=== PATIENT | female | born 1955 | race Caucasian/White ===

== ENCOUNTER 2025-02-26 13:57 | Emergency (ER) | payer MEDICARE, OTHER ==
--- NOTE | 2025-02-26 14:11 | ERPHSYRPT ---
- History of Present Illness Time Seen by Provider: 02/26/25 14:11 Source: patient, family Exam Limitations: no limitations Physician History: This is a 69-year-old white female patient of Dr. Moe Zuniga who presents to the emergency department with abnormal lab diagnosis. The patient has no anemia of unknown cause or etiology. A month ago, patient had a hemoglobin of 7.2. I reviewed those prior labs. Yesterday she had repeat labs performed her hemoglobin was 6.7. Patient states that without exerting herself she does not feel the tired or fatigued. However she has been moving her mother's home and has been tired because of moving and lifting and going back and forth in several directions each day to help complete the move. She denies chest pain. She denies shortness of breath. She denies dizziness. She notes no bright red blood or black tarry stools or bleeding out of any orifice. She is not on any anticoagulation therapy and she has no liver disease. Patient called her brain wave technician office, Dr. Marr but there was no answer. She knows that the office closes early on Fridays. Patient has a history of hypothyroidism and history of hypertension. Patient recently underwent a bone marrow biopsy but does not know of the results of that test. Patient's primary care provider sent her to the emergency department. Timing/Duration: today Severity: mild Associated Symptoms: denies symptoms Allergies/Adverse Reactions: No Known Drug Allergies Allergy (Verified 02/26/25 14:17) Home Medications: Levothyroxine Sodium 100 Mcg [Synthroid 100 Mcg] 100 mcg PO DAILY 05/02/24 [History] Losartan Potassium 50 mg PO DAILY 05/02/24 [History] Metoprolol Succinate 25 mg PO DAILY 05/02/24 [History] hydroCHLOROthiazide [Hydrochlorothiazide] 25 mg PO DAILY 05/02/24 [History] Pyridoxine HCl (Vitamin B6) [Vitamin B-6] 100 mg PO DAILY 02/26/25 [History] Travel Risk - International Travel Have you traveled outside of the country in past 3 weeks: No - Emerging Infectious Disease Are you exhibiting symptoms associated with any current EIDs: No - Review of Systems Constitutional: No Symptoms Eyes: No Symptoms Ears, Nose, & Throat: No Symptoms Respiratory: No Symptoms Cardiac: No Symptoms Abdominal/Gastrointestinal: No Symptoms Genitourinary Symptoms: No Symptoms Musculoskeletal: No Symptoms Skin: No Symptoms Neurological: No Symptoms Psychological: No Symptoms Endocrine: No Symptoms Hematologic/Lymphatic: No Symptoms Immunological/Allergic: No Symptoms All Other Systems: Reviewed and Negative - Past Medical History Pertinent Past Medical History: Yes Cardiac History: High Cholesterol, Hypertension Endocrine Medical History: Hypothyroidism Other Medical History: anemia - Past Surgical History Past Surgical History: Yes Gastrointestinal: Cholecystectomy - Social History Drug Use: none - Nursing Vital Signs Nursing Vital Signs: Initial Vital Signs Pulse Rate 81 02/26/25 14:13 Respiratory Rate 29 H 02/26/25 14:13 Blood Pressure 122/64 02/26/25 14:13 O2 Sat by Pulse Oximetry 96 02/26/25 14:13 Pain Scale Pain Intensity 0 - Physical Exam General Appearance: no apparent distress, alert, thin Eye Exam: PERRL/EOMI, eyes nml inspection Ears, Nose, Throat Exam: normal ENT inspection, moist mucous membranes Neck Exam: normal inspection, non-tender, supple, full range of motion Respiratory Exam: normal breath sounds, lungs clear, airway intact, No chest tenderness, No respiratory distress Cardiovascular Exam: regular rate/rhythm, normal heart sounds, normal peripheral pulses Gastrointestinal/Abdomen Exam: soft, normal bowel sounds, No tenderness Pelvic Exam: not done Rectal Exam: not done Back Exam: normal inspection, normal range of motion, No CVA tenderness, No vertebral tenderness Extremity Exam: normal inspection, normal range of motion, pelvis stable Neurologic Exam: alert, oriented x 3, cooperative, operations label clerk II-XII nml as tested, normal mood/affect, nml cerebellar function, nml station & gait, sensation nml Skin Exam: normal color, warm, dry Lymphatic Exam: No adenopathy SpO2 Interpretation: normal O2 Delivery: Room Air - Course Nursing assessment & vital signs reviewed: Yes Ordered Tests: Active Orders 24 hr Category Date Time Status CBC W DIFF Stat Lab 02/26/25 14:36 Completed CMP Stat Lab 02/26/25 14:36 Completed PROTIME WITH INR Stat Lab 02/26/25 14:36 Completed Medication Summary Discontinued Medications Generic Name Dose Route Start Last Admin Trade Name Freq PRN Reason Stop Dose Admin Potassium Chloride 10 meq 02/26/25 15:47 Potassium Chloride Tab 10 Meq Tab PO 02/26/25 15:48 STAT ONE Lab/Rad Data: Laboratory Result Diagrams 02/26/25 14:36 02/26/25 14:36 Laboratory Results 02/26/25 02/26/25 02/26/25 Range/Units 14:36 14:36 14:36 WBC (3.98-10.04) x10^3/uL RBC (3.93-5.22) x10^6/uL Hgb (11.2-15.7) g/dL Hct (34.1-44.9) % MCV (79.4-94.8) fL MCH (25.6-32.2) pg MCHC (32.2-35.5) g/dL RDW (11.7-14.4) % Plt Count (182-369) x10^3/uL Gran % (34.0-71.1) % Immature Gran % (Auto) (0.001-0.429) % Nucleat RBC Rel Count (0.00-0.2) % Eos # (Auto) (0.04-0.36) x10^3/uL Immature Gran # (Auto) (0.001-0.031) x10^3u/L Absolute Lymphs (auto) (1.18-3.74) x10^3/uL Absolute Monos (auto) (0.24-0.86) x10^3/uL Absolute Nucleated RBC (0.00-0.012) x10^3u/L Lymphocytes % (19.3-51.7) % Monocytes % (4.7-12.5) % Eosinophils % (0.7-5.8) % Basophils % (0.1-1.2) % Absolute Granulocytes (1.56-6.13) x10^3/uL Basophils # (0.01-0.08) x10^3/uL PT 11.0 (9.4-12.5) SECONDS INR 1.01 (0.8-3.0) Sodium 138 (135-145) mmol/L Potassium 3.3 L (3.5-5.1) mmol/L Chloride 103 (98-107) mmol/L Carbon Dioxide 26 (22-30) mmol/L Anion Gap 12.6 (5-15) MEQ/L BUN 11 (7-17) mg/dL Creatinine 0.64 (0.52-1.04) mg/dL Estimated GFR 95.6 ML/MIN Glucose 100 (74-106) mg/dL Calcium 8.9 (8.4-10.2) mg/dL Total Bilirubin 0.90 (0.2-1.3) mg/dL AST 17 (14-36) U/L ALT 11 (0-35) U/L Alkaline Phosphatase 69 (38-126) U/L Serum Total Protein 7.1 (6.3-8.2) g/dL Albumin 4.2 (3.5-5.0) g/dL Slides for Path Review ABO Group O Rh Factor NEGATIVE Antibody Screen NEGATIVE (NEGATIVE) Crossmatch COMPATIBLE (COMPATIBLE) 02/26/25 Range/Units 14:36 WBC 4.5 (3.98-10.04) x10^3/uL RBC 2.82 L (3.93-5.22) x10^6/uL Hgb 6.8 L* (11.2-15.7) g/dL Hct 21.3 L (34.1-44.9) % MCV 75.5 L (79.4-94.8) fL MCH 24.1 L (25.6-32.2) pg MCHC 31.9 L (32.2-35.5) g/dL RDW 27.8 H (11.7-14.4) % Plt Count 254 (182-369) x10^3/uL Gran % 63.6 (34.0-71.1) % Immature Gran % (Auto) 1.6 H (0.001-0.429) % Nucleat RBC Rel Count 0.0 (0.00-0.2) % Eos # (Auto) 0.01 L (0.04-0.36) x10^3/uL Immature Gran # (Auto) 0.07 H (0.001-0.031) x10^3u/L Absolute Lymphs (auto) 0.94 L (1.18-3.74) x10^3/uL Absolute Monos (auto) 0.57 (0.24-0.86) x10^3/uL Absolute Nucleated RBC 0.00 (0.00-0.012) x10^3u/L Lymphocytes % 21.0 (19.3-51.7) % Monocytes % 12.7 H (4.7-12.5) % Eosinophils % 0.2 L (0.7-5.8) % Basophils % 0.9 (0.1-1.2) % Absolute Granulocytes 2.85 (1.56-6.13) x10^3/uL Basophils # 0.04 (0.01-0.08) x10^3/uL PT (9.4-12.5) SECONDS INR (0.8-3.0) Sodium (135-145) mmol/L Potassium (3.5-5.1) mmol/L Chloride (98-107) mmol/L Carbon Dioxide (22-30) mmol/L Anion Gap (5-15) MEQ/L BUN (7-17) mg/dL Creatinine (0.52-1.04) mg/dL Estimated GFR ML/MIN Glucose (74-106) mg/dL Calcium (8.4-10.2) mg/dL Total Bilirubin (0.2-1.3) mg/dL AST (14-36) U/L ALT (0-35) U/L Alkaline Phosphatase (38-126) U/L Serum Total Protein (6.3-8.2) g/dL Albumin (3.5-5.0) g/dL Slides for Path Review YES ABO Group Rh Factor Antibody Screen (NEGATIVE) Crossmatch (COMPATIBLE) - Progress Progress: unchanged Progress Note: 02/26/25 15:10 My medical decision making and the assignment of moderate complexity to this patient's medical issue today is based on review of the patient's past medical history, review the patient's medication list, reviewed patient drug allergy list, history present illness and physical findings on examination. The workup in this patient includes CBC, CMP, PT/INR as well as type and cross for 1 unit of packed red blood cells. Differential diagnosis includes but is not limited to anemia, coagulopathy, liver disease, hematologic disorder. The patient is hemodynamically stable. She does not have chest pain and she does not have shortness of breath. She notes no bleeding actively from any orifice. She has had no black stool, coffee-ground emesis or hematuria that she is aware of. Together, the patient and I have decided that we will repeat the CBC, perform a CMP and a PT/INR and provide her with 1 unit of packed red blood cell transfusion. If she continues to be hemodynamically stable at the the time of PRBC transfusion completion, we will discharge her to home with instructions to follow-up with her brain wave technician on 03/01/2025. 02/26/25 15:53 I interpreted the patient's laboratory data results. The hemoglobin is 6.8 today. Her potassium is mildly low at 3.3. We will provide her with 10 mEq of potassium orally. The remainder of her laboratory data results do not appear to be acute or emergent. Counseled pt/family regarding: lab results, diagnosis, need for follow-up Medical Desision Making - Diagnostic Testing Diagnostic test were ordered, analyzed, and reviewed by me: Yes - Risk of complications Low Risk: Low risk of morbidity from additional dx testing or treatment - Departure Departure Disposition: Home Clinical Impression: Symptomatic anemia Condition: Stable Critical Care Time: Yes Critical Care Time(excluding separately billable procedures): Critical 30-74 mins (45 minutes) Referrals: ELICIA ZUNIGA [Primary Care Provider, INTERNAL [facility]IC[facility]] - Follow up/PCP as directed Additional Instructions: Plenty fluids. Take your medications as prescribed. Call your brain wave technician on 03/01/2025, and make them aware of the events that occurred 02/26/2025. Also, let them know that you had your blood drawn on the morning of 03/01/2025.
[2025-02-26 14:41] LABS: Absolute Neutrophil Ct (ANC) 2.85 x10^3/uL (1.56-6.13); BASOPHIL % 0.9 % (0.1-1.2); Basophil (Absolute #) 0.04 x10^3/uL (0.01-0.08); Eosinophil % 0.2 % (0.7-5.8); Eosinophil (Absolute #) 0.01 x10^3/uL (0.04-0.36); Hematocrit 21.3 % (34.1-44.9); IMMATURE GRAN # 0.07 x10^3u/L (0.001-0.031); IMMATURE GRAN % 1.6 % (0.001-0.429); Lymphocyte (Absolute #) 0.94 x10^3/uL (1.18-3.74); Mean Cell Volume 75.5 fL (79.4-94.8); Mean Corpuscular Hemoglobin 24.1 pg (25.6-32.2); Mean Corpuscular Hgb Concent. 31.9 g/dL (32.2-35.5); Monocyte (Absolute #) 0.57 x10^3/uL (0.24-0.86); Monocytes % 12.7 % (4.7-12.5); Neutrophil % 63.6 % (34.0-71.1); Platelet Count 254 x10^3/uL (182-369); Red Blood Count 2.82 x10^6/uL (3.93-5.22); Red Cell Distribution Width 27.8 % (11.7-14.4); White Blood Count 4.5 x10^3/uL (3.98-10.04)
[2025-02-26 14:44] LABS: Hemoglobin 6.8 g/dL (11.2-15.7)
[2025-02-26 14:51] LABS: ALBUMIN 4.2 g/dL (3.5-5.0); ANION GAP 12.6 MEQ/L (5-15); BILIRUBIN,TOTAL 0.9 mg/dL (0.2-1.3); Calcium 8.9 mg/dL (8.4-10.2); Creatinine 1 0.64 mg/dL (0.52-1.04); EST GLOMERULAR FILTRATION RATE 95.6 ML/MIN; INR 1.01 (0.8-3.0); Potassium 3.3 mmol/L (3.5-5.1); Total Protein 7.1 g/dL (6.3-8.2)
[2025-02-26 15:11] LABS: Slide Review 1 YES
[2025-02-26 15:40] LABS: ABO TYPING O; Antibody Screen NEGATIVE (NEGATIVE); RH TYPING NEGATIVE
[2025-02-26 15:44] LABS: CROSS MATCH (PRBC) COMPATIBLE (COMPATIBLE)
[2025-02-26] MEDS ORDERED: Klor Con ONE (15:56)
[2025-02-26] MEDS: Klor Con PO ONE (15:56)
[2025-02-26] MEDS ORDERED: Sodium Chloride 0.9% 1000 ML 1,000 ML ONE (15:56)
[2025-02-26 18:05] VITALS: BP 114/61; PULSE 72; RESP 18; O2SAT 98
== END 2025-02-26 18:08 | disposition home or self-care (01) ==
LOC: ED 13:57
DX: D64.9 Anemia, unspecified (principal); R53.83 Other fatigue; E78.5 Hyperlipidemia, unspecified; I10 Essential (primary) hypertension; Z79.899 Other long term (current) drug therapy
CPT/HCPCS: 36415; 36430; 80053; 85025; 85610; 86850; 86900; 86901; 86922; 99285; P9016; 99283; 99291; A9270-GY

== ENCOUNTER 2025-08-01 11:19 | Emergency (ER) | payer MEDICARE, OTHER ==
[2025-08-01 11:44] VITALS: TEMP 97.4
--- NOTE | 2025-08-01 12:42 | ERPHSYRPT ---
- History of Present Illness Time Seen by Provider: 08/01/25 12:35 Source: patient Exam Limitations: no limitations Patient Subjective Stated Complaint: Pt. states, "I feel weak and short of breath when I try to do anything at all. I just have no energy. I think my blood counts are low. I had a transfusion 6 weeks ago." Triage Nursing Assessment: Pt. ambulates to room with unsteady gait, A&O x 3, Resp. even unlabored, 1-2+ p. edema in BLE, Physician History: Patient is a 69-year-old female history of hypertension, hypothyroidism current smoker, MDS, symptomatic anemia presents to our ED for evaluation of fatigue/generalized weakness and shortness of breath. Patient believes that she is anemic. Patient has had anemia in the past. Patient had a blood transfusion approximately 6 weeks ago for the same thing. Patient denies pain. No chest pain. No nausea vomiting or diaphoresis. No abdominal pain. Patient otherwise feels well. She voices no other complaints or concerns at this time. Portions of this note were created with voice recognition technology. There may be grammatical, spelling, punctuation or sound alike errors Timing/Duration: today Activities at Onset: activity Severity of Dyspnea-Max: moderate Severity of Dyspnea-Current: mild Possible Cause: occasional episodes Modifying Factors: Improves With: activity Associated Symptoms: denies symptoms Allergies/Adverse Reactions: No Known Drug Allergies Allergy (Verified 07/12/25 13:20) Home Medications: Levothyroxine Sodium 100 Mcg [Synthroid 100 Mcg] 112 mcg PO DAILY 05/02/24 [History] Losartan Potassium 50 mg PO DAILY 05/02/24 [History] Metoprolol Succinate 25 mg PO DAILY 05/02/24 [History] hydroCHLOROthiazide [Hydrochlorothiazide] 25 mg PO DAILY 05/02/24 [History] Pyridoxine HCl (Vitamin B6) [Vitamin B-6] 100 mg PO DAILY 02/26/25 [History] Hx Tetanus, Diphtheria Vaccination/Date Given: Yes Hx Influenza Vaccination/Date Given: No Hx Pneumococcal Vaccination/Date Given: No Immunizations Up to Date: No Travel Risk - International Travel Have you traveled outside of the country in past 3 weeks: No - Emerging Infectious Disease Are you exhibiting symptoms associated with any current EIDs: No Symptoms: Diarrhea - Review of Systems All Other Systems: Reviewed and Negative - Past Medical History Pertinent Past Medical History: Yes Neurological History: No Pertinent History ENT History: No Pertinent History Cardiac History: Hypertension Respiratory History: No Pertinent History Endocrine Medical History: Hypothyroidism Musculoskeletal History: No Pertinent History GI Medical History: No Pertinent History History: No Pertinent History Psycho-Social History: No Pertinent History Female Reproductive Disorders: No Pertinent History Other Medical History: anemia. current smoker. myelodysplastic syndrome with multilineage dysplasia - Past Surgical History Past Surgical History: Yes Neuro Surgical History: No Pertinent History Cardiac: No Pertinent History Respiratory: No Pertinent History Gastrointestinal: Cholecystectomy Genitourinary: No Pertinent History Musculoskeletal: No Pertinent History Female Surgical History: No Pertinent History Other Surgical History: colonoscopy on May 13. bone marrow extraction january 13, 2025 - Social History Smoking Status: Current every day smoker Exposure to second hand smoke: No Drug Use: none - Social Determinants of Health Will the patient participate in the screening: Declined to provide - Nursing Vital Signs Nursing Vital Signs: Initial Vital Signs Temperature 97.4 F 08/01/25 11:19 Pulse Rate 90 08/01/25 11:19 Respiratory Rate 18 08/01/25 11:19 Blood Pressure 128/60 08/01/25 11:19 O2 Sat by Pulse Oximetry 100 08/01/25 11:19 Pain Scale Pain Intensity 3 - Physical Exam General Appearance: no apparent distress, alert Eye Exam: PERRL/EOMI Neck Exam: normal inspection, supple Respiratory Exam: normal breath sounds, lungs clear, airway intact, No respiratory distress Cardiovascular/Chest Exam: normal heart sounds, regular rate/rhythm Abdominal/Gastrointestinal Exam: soft, other (Abdominal fullness. 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, sensation nml, No motor deficits Skin Exam: normal color, warm, No dry Lymphatic Exam: No adenopathy SpO2 Interpretation: normal SpO2: 100 O2 Delivery: Room Air - Course Nursing assessment & vital signs reviewed: Yes Rhythm Strip: Sinus Tachycardia - Radiology Exams Chest X-ray Interpretation: Teleradiologist Report (Right lower lobe infiltrate) - CT Exams Abdomen/Pelvis CT Interpretation: Tele-radiologist Report (Hepatosplenomegaly, portal hypertension, ascites, anasarca, mild bilateral pleural effusion) Ordered Tests: Active Orders 24 hr Category Date Time Status Punchboard Stuffer STAT Care 08/01/25 12:43 Completed IV Insertion STAT Care 08/01/25 12:42 Completed Pulse Oximetry (ED) STAT Care 08/01/25 12:42 Completed Telemetry q4h Care 08/01/25 13:39 Completed ABDOMEN AND PELVIS W/0 CONTRAS [CT] Stat Exams 08/01/25 21:53 Completed CHEST 1 VIEW (PORTABLE) Stat Exams 08/01/25 19:28 Completed BLOOD CULTURE Stat Lab 08/01/25 14:08 Received CBC W DIFF Stat Lab 08/01/25 12:52 Results CMP Stat Lab 08/01/25 12:52 Completed Lactic Acid Stat Lab 08/01/25 14:32 Completed Manual Differential NC Stat Lab 08/01/25 12:52 Results Pathologist Review Stat Lab 08/01/25 12:52 Results TROPONIN Q4H Lab 08/01/25 12:52 Completed UA W/RFX UR CULTURE Stat Lab 08/01/25 12:42 Completed Medication Summary Discontinued Medications Generic Name Dose Route Start Last Admin Trade Name Freq PRN Reason Stop Dose Admin Al Hydrox/Mg Hydrox/Simethicone Confirm 08/01/25 20:26 Mag Hydrox/Al Hydrox/Simeth 30 Ml Udcup Administered 08/01/25 20:27 Dose 30 ml .ROUTE .STK-MED ONE Azithromycin Confirm 08/01/25 21:36 Azithromycin Inj Administered 08/01/25 21:37 Dose 500 mg IV .STK-MED ONE Sodium Chloride 1,000 mls @ 100 mls/hr 08/01/25 12:45 08/01/25 22:54 Sodium Chloride 0.9% 1000 Ml IV 08/31/25 12:44 0 mls/hr .Q10H HO Infusion Magnesium Sulfate/Dextrose 100 mls @ 100 mls/hr 08/01/25 13:45 08/01/25 16:46 Magnesium 1 Gm / 100 Ml D5w IV 08/01/25 15:44 Infused Q1H HO Infusion Potassium Chloride 20 meq in 100 mls @ 50 mls/hr 08/01/25 13:45 08/01/25 19:48 Potassium Chloride 20 Meq In Water 100ml IV 08/01/25 17:44 Infused Q2H HO Infusion Ceftriaxone Sodium 2 gm in 100 mls @ 200 mls/hr 08/01/25 21:22 08/01/25 22:53 Rocephin 2 Gm/100 Ml Nacl IV 08/01/25 21:51 Not Given STAT ONE Azithromycin 500 mg/ Sodium 250 mls @ 250 mls/hr 08/01/25 21:22 08/01/25 22:42 Chloride IV 08/01/25 22:21 Infused STAT STA Infusion Sodium Chloride Confirm 08/01/25 21:36 Sodium Chloride 0.9% 250 Ml Administered 08/01/25 21:37 Dose 250 mls @ ud IV .STK-MED ONE Sodium Chloride Confirm 08/01/25 13:06 Sodium Chloride 0.9% 1000 Ml Administered 08/01/25 13:07 Dose 1,000 mls @ ud .ROUTE .STK-MED ONE Sodium Chloride Confirm 08/01/25 15:40 Sodium Chloride 0.9% 1000 Ml Administered 08/01/25 15:41 Dose 1,000 mls @ ud .ROUTE .STK-MED ONE Magnesium Sulfate/Dextrose Confirm 08/01/25 14:20 Magnesium 1 Gm / 100 Ml D5w Administered 08/01/25 14:21 Dose 100 mls @ ud IV .STK-MED ONE Magnesium Sulfate/Dextrose Confirm 08/01/25 15:06 Magnesium 1 Gm / 100 Ml D5w Administered 08/01/25 15:07 Dose 100 mls @ ud IV .STK-MED ONE Potassium Chloride Confirm 08/01/25 14:00 Potassium Chloride 20 Meq In Water 100ml Administered 08/01/25 14:01 Dose 100 mls @ ud IV .STK-MED ONE Potassium Chloride Confirm 08/01/25 17:45 Potassium Chloride 20 Meq In Water 100ml Administered 08/01/25 17:46 Dose 100 mls @ ud IV .STK-MED ONE Lidocaine HCl Confirm 08/01/25 20:26 Lidocaine Hcl 2% Viscous 15 Ml Udcup Administered 08/01/25 20:27 Dose 15 ml .ROUTE .STK-MED ONE Magnesium Hydroxide 45 ml 08/01/25 20:11 08/01/25 20:27 Mag Hydrx/Alum Hyd/Simeth/Lido 45 Ml Bottle PO 08/01/25 20:12 45 ml STAT ONE Administration Lab/Rad Data: Laboratory Result Diagrams 08/01/25 12:52 08/01/25 12:52 Laboratory Results 08/01/25 08/01/25 08/01/25 Range/Units 14:32 14:10 12:52 WBC (3.98-10.04) x10^3/uL RBC (3.93-5.22) x10^6/uL Hgb (11.2-15.7) g/dL Hct (34.1-44.9) % MCV (79.4-94.8) fL MCH (25.6-32.2) pg MCHC (32.2-35.5) g/dL RDW (11.7-14.4) % Plt Count (182-369) x10^3/uL Segmented Neutrophils (34.0-71.1) % Band Neutrophils (0.0-2.0) % Lymphocytes (Manual) (19.3-51.7) % Monocytes (Manual) (4.7-12.5) % Metamyelocytes % Myelocytes % Nucleated RBCs % Hypochromia Platelet Estimate (NORMAL) RBC Morphology Polychromasia Basophilic Stippling Anisocytosis Microcytosis Macrocytosis Smear Path Review Sodium (135-145) mmol/L Potassium (3.5-5.1) mmol/L Chloride (98-107) mmol/L Carbon Dioxide (22-30) mmol/L Anion Gap (5-15) MEQ/L BUN (7-17) mg/dL Creatinine (0.52-1.04) mg/dL Estimated GFR ML/MIN Glucose (74-106) mg/dL Lactic Acid 2.0 (0.4-2.0) Calcium (8.4-10.2) mg/dL Total Bilirubin (0.2-1.3) mg/dL AST (14-36) U/L ALT (0-35) U/L Alkaline Phosphatase (38-126) U/L Troponin I (0.000-0.033) ng/mL Serum Total Protein (6.3-8.2) g/dL Albumin (3.5-5.0) g/dL Urine Color (Yellow) Urine Appearance (Clear) Urine pH (4.6-8.0) Ur Specific Warrior (1.005-1.030) Urine Protein (Negative) Urine Glucose (UA) (Negative) mg/dL Urine Ketones (Negative) Urine Blood (Negative) Urine Nitrite (Negative) Urine Bilirubin (Negative) Urine Urobilinogen (0.2) mg/dL Ur Leukocyte Esterase (Negative) U Hyaline Cast (Auto) (0-2) /LPF Urine Microscopic RBC (0-5) /HPF Urine Microscopic WBC (0-5) /HPF Ur Epithelial Cells (None Seen) /HPF Urine Bacteria (None Seen) /HPF Urine Culture Reflexed (NO) Influenza Type A Ag NEGATIVE (NEGATIVE) Influenza Type B Ag NEGATIVE (NEGATIVE) RSV (PCR) NEGATIVE (NEGATIVE) SARS-CoV-2 (PCR) NEGATIVE (NEGATIVE) ABO Group Rh Factor Antibody Screen (NEGATIVE) Crossmatch COMPATIBLE (COMPATIBLE) 08/01/25 08/01/25 08/01/25 Range/Units 12:52 12:52 12:52 WBC (3.98-10.04) x10^3/uL RBC (3.93-5.22) x10^6/uL Hgb (11.2-15.7) g/dL Hct (34.1-44.9) % MCV (79.4-94.8) fL MCH (25.6-32.2) pg MCHC (32.2-35.5) g/dL RDW (11.7-14.4) % Plt Count (182-369) x10^3/uL Segmented Neutrophils (34.0-71.1) % Band Neutrophils (0.0-2.0) % Lymphocytes (Manual) (19.3-51.7) % Monocytes (Manual) (4.7-12.5) % Metamyelocytes % Myelocytes % Nucleated RBCs % Hypochromia Platelet Estimate (NORMAL) RBC Morphology Polychromasia Basophilic Stippling Anisocytosis Microcytosis Macrocytosis Smear Path Review Sodium (135-145) mmol/L Potassium (3.5-5.1) mmol/L Chloride (98-107) mmol/L Carbon Dioxide (22-30) mmol/L Anion Gap (5-15) MEQ/L BUN (7-17) mg/dL Creatinine (0.52-1.04) mg/dL Estimated GFR ML/MIN Glucose (74-106) mg/dL Lactic Acid (0.4-2.0) Calcium (8.4-10.2) mg/dL Total Bilirubin (0.2-1.3) mg/dL AST (14-36) U/L ALT (0-35) U/L Alkaline Phosphatase (38-126) U/L Troponin I < 0.012 (0.000-0.033) ng/mL Serum Total Protein (6.3-8.2) g/dL Albumin (3.5-5.0) g/dL Urine Color (Yellow) Urine Appearance (Clear) Urine pH (4.6-8.0) Ur Specific Warrior (1.005-1.030) Urine Protein (Negative) Urine Glucose (UA) (Negative) mg/dL Urine Ketones (Negative) Urine Blood (Negative) Urine Nitrite (Negative) Urine Bilirubin (Negative) Urine Urobilinogen (0.2) mg/dL Ur Leukocyte Esterase (Negative) U Hyaline Cast (Auto) (0-2) /LPF Urine Microscopic RBC (0-5) /HPF Urine Microscopic WBC (0-5) /HPF Ur Epithelial Cells (None Seen) /HPF Urine Bacteria (None Seen) /HPF Urine Culture Reflexed (NO) Influenza Type A Ag (NEGATIVE) Influenza Type B Ag (NEGATIVE) RSV (PCR) (NEGATIVE) SARS-CoV-2 (PCR) (NEGATIVE) ABO Group O Rh Factor NEGATIVE Antibody Screen NEGATIVE (NEGATIVE) Crossmatch COMPATIBLE (COMPATIBLE) 08/01/25 08/01/25 08/01/25 Range/Units 12:52 12:52 12:42 WBC 32.7 H* (3.98-10.04) x10^3/uL RBC 2.54 L (3.93-5.22) x10^6/uL Hgb 6.9 L* (11.2-15.7) g/dL Hct 24.6 L (34.1-44.9) % MCV 96.9 H (79.4-94.8) fL MCH 27.2 (25.6-32.2) pg MCHC 28.0 L (32.2-35.5) g/dL RDW 24.8 H (11.7-14.4) % Plt Count 88 L (182-369) x10^3/uL Segmented Neutrophils 55 (34.0-71.1) % Band Neutrophils 13 H (0.0-2.0) % Lymphocytes (Manual) 7 L (19.3-51.7) % Monocytes (Manual) 20 H (4.7-12.5) % Metamyelocytes 3 % Myelocytes 2 % Nucleated RBCs 8 % Hypochromia 1+ Platelet Estimate DECREASED (NORMAL) RBC Morphology ABNORMAL Polychromasia 2+ Basophilic Stippling 1+ Anisocytosis 3+ Microcytosis 2+ Macrocytosis 1+ Smear Path Review Pending Sodium 139 (135-145) mmol/L Potassium 3.0 L* (3.5-5.1) mmol/L Chloride 107 (98-107) mmol/L Carbon Dioxide 23 (22-30) mmol/L Anion Gap 12.3 (5-15) MEQ/L BUN 11 (7-17) mg/dL Creatinine 0.84 (0.52-1.04) mg/dL Estimated GFR 75.2 ML/MIN Glucose 125 H (74-106) mg/dL Lactic Acid (0.4-2.0) Calcium 8.7 (8.4-10.2) mg/dL Total Bilirubin 2.20 H (0.2-1.3) mg/dL AST 18 (14-36) U/L ALT 14 (0-35) U/L Alkaline Phosphatase 211 H (38-126) U/L Troponin I (0.000-0.033) ng/mL Serum Total Protein 6.9 (6.3-8.2) g/dL Albumin 3.5 (3.5-5.0) g/dL Urine Color Yellow (Yellow) Urine Appearance Clear (Clear) Urine pH 6.5 (4.6-8.0) Ur Specific Warrior 1.010 (1.005-1.030) Urine Protein 100 A (Negative) Urine Glucose (UA) Negative (Negative) mg/dL Urine Ketones Negative (Negative) Urine Blood Negative (Negative) Urine Nitrite Negative (Negative) Urine Bilirubin Negative (Negative) Urine Urobilinogen 1.0 A (0.2) mg/dL Ur Leukocyte Esterase Negative (Negative) U Hyaline Cast (Auto) 6-10 A (0-2) /LPF Urine Microscopic RBC 0-2 (0-5) /HPF Urine Microscopic WBC 0-2 (0-5) /HPF Ur Epithelial Cells Rare (None Seen) /HPF Urine Bacteria None Seen (None Seen) /HPF Urine Culture Reflexed no (NO) Influenza Type A Ag (NEGATIVE) Influenza Type B Ag (NEGATIVE) RSV (PCR) (NEGATIVE) SARS-CoV-2 (PCR) (NEGATIVE) ABO Group Rh Factor Antibody Screen (NEGATIVE) Crossmatch (COMPATIBLE) - Progress Progress: improved Air Movement: good Progress Note: I spoke to Dr. Chow hematology oncologist at [facility]. We spoke at 2 PM. We discussed the laboratory findings in detail and he advised transfer to his hospital for further evaluation and treatment. Portions of this note were created with voice recognition technology. There may be grammatical, spelling, punctuation or sound alike errors 08/01/25 14:04 Patient accepted by hospitalist at [facility]. Patient accepted at 2:17 PM. Hospitalist advises initiating blood transfusion 08/01/25 14:21 Chest x-ray reviewed Dr. Poon. Chest x-ray suspicious for right lower lobe infiltrate. Formal read requested and obtained. Right lower lobe infiltrate confirmed. IV antibiotics initiated. 08/01/25 21:23 While in our ED patient's abdomen appeared to be slightly more distended. Patient was slightly more tachypneic. CT abdomen pelvis ordered. Findings consistent with portal hypertension and ascites anasarca observed. Imaging study results posted after patient been discharged. We contacted [facility] forwarded a copy of the report. 69-year-old female presents to our ED for evaluation of shortness of breath generalized weakness. Physical exam shows swelling of her feet. Mild abdominal fullness. No abdominal pain. Laboratory workup reveals a leukocytosis of 32. Patient anemic at 6.9. Platelet 88. Chest x-ray shows a right lower lobe infiltrate. Antibiotics infused. Patient typed and screened. 2 units PRBC infused. Azithromycin and Rocephin infused for right lower lobe infiltrate. Patient hypokalemic at 3.0. 2 g of magnesium and 60 mill equivalents of potassium administered. Patient agreed to transfer to [facility] for further evaluation and treatment. History obtained from patient and her sister who is at the bedside. Differential diagnosis includes sepsis, leukemia, viral infection Portions of this note were created with voice recognition technology. There may be grammatical, spelling, punctuation or sound alike errors Complexity of problem addressed is moderate acute complicated. No critical care time. Complexity of data reviewed and analyzed is extensive. Test ordered chest reviewed results analyzed and correlated clinically with history and physical examination. Management discussed with hematology oncology, [facility] hospitalist. Risk of complication and or risk of morbidity/mortality of patient management is high. Patient requires transfer to higher level of care. Vital stable. Time spent to transfer patient is approximately 20 minutes. Plan of care established for shared decision making. No social determinants of health present to impede follow-up. Portions of this note were created with voice recognition technology. There may be grammatical, spelling, punctuation or sound alike errors 08/01/25 23:49 08/01/25 23:51 Blood Culture(s) Obtained: Yes Antibiotics given: No Counseled pt/family regarding: lab results, diagnosis, rad results - Departure Departure Disposition: Transfer Clinical Impression: Leukocytosis, Symptomatic anemia, Hypokalemia, Thrombocytopenia, Right lower lobe pulmonary infiltrate, Lower extremity pitting edema, Hepatosplenomegaly, Portal hypertension, Ascites, Anasarca, Bilateral pleural effusion Condition: Stable Critical Care Time: No Referrals: ELICIA ZUNIGA [Primary Care Provider, [facility]] - Follow up/PCP as directed
[2025-08-01 13:08] LABS: Hematocrit 24.6 % (34.1-44.9); Mean Corpuscular Hemoglobin 27.2 pg (25.6-32.2); Mean Corpuscular Hgb Concent. 28.0 g/dL (32.2-35.5); Platelet Count 88 x10^3/uL (182-369); Red Blood Count 2.54 x10^6/uL (3.93-5.22)
[2025-08-01 13:23] LABS: Calcium 8.7 mg/dL (8.4-10.2); Carbon Dioxide 23.0 mmol/L (22-30); Creatinine 1 0.84 mg/dL (0.52-1.04); EST GLOMERULAR FILTRATION RATE 75.2 ML/MIN; Glucose 125.0 mg/dL (74-106); SGOT/AST 18.0 U/L (14-36); SGPT/ALT 14.0 U/L (0-35); Total Protein 6.9 g/dL (6.3-8.2)
[2025-08-01 13:30] LABS: Potassium 3.0 mmol/L (3.5-5.1)
[2025-08-01 13:32] LABS: White Blood Count 32.7 x10^3/uL (3.98-10.04)
[2025-08-01 13:33] LABS: Hemoglobin 6.9 g/dL (11.2-15.7)
[2025-08-01 13:55] LABS: ABO TYPING O; RH TYPING NEGATIVE
[2025-08-01] MEDS ORDERED: POTASSIUM CHLORIDE 20 mEq IN WATER 100ML 100 ML IV ONE ×2 (14:00→17:45)
[2025-08-01] MEDS: POTASSIUM CHLORIDE 20 mEq IN WATER 100ML 20 MEQ/100 ML BAG IV SCH (14:02)
[2025-08-01 14:04] LABS: Total Cells Counted 100
[2025-08-01 14:05] LABS: Macrocytosis 1+; Microcytosis 2+; Polychromasia 2+
[2025-08-01 14:06] LABS: BAND 13 % (0.0-2.0); Basophilic Stippling 1+
[2025-08-01] MEDS ORDERED: Magnesium 1 Gm / 100 Ml D5W*** 100 ML IV ONE ×2 (14:20→15:06)
[2025-08-01] MEDS: Magnesium 1 Gm / 100 Ml D5W*** 100 ML IV SCH (14:21)
[2025-08-01 15:07] LABS: INFLUENZA A NEGATIVE (NEGATIVE); INFLUENZA B NEGATIVE (NEGATIVE); RESPIRATORY SYNCTIAL VIRUS NEGATIVE (NEGATIVE); SARS-CoV-2 Xpert Express NEGATIVE (NEGATIVE)
[2025-08-01 15:33] LABS: CROSS MATCH (PRBC) COMPATIBLE (COMPATIBLE)
[2025-08-01 15:35] LABS: CROSS MATCH (PRBC) COMPATIBLE (COMPATIBLE)
[2025-08-01 15:52] LABS: Glucose, Urine Negative (Negative); Protein,Urine Dip 100 (Negative); RBC 0-2 /HPF (0-5); WBC 0-2 /HPF (0-5)
[2025-08-01] MEDS ORDERED: MAALOX ES 30 ML UNIT DOSE ONE (20:26)
[2025-08-01] MEDS ORDERED: XYLOCAINE VISCOUS 2% 15 ML CUP ONE (20:26)
[2025-08-01] MEDS: GI COCKTAIL 45 ML (Maalox/Lidocaine) PO ONE (20:27)
--- NOTE | 2025-08-01 21:12 | XRAY ---
CLINICAL HISTORY: sob COMPARISON: 07/27/2025 TECHNIQUE: X-ray images of the chest were obtained in AP projection. FINDINGS: Pulmonary Parenchyma: Faint opacification involving the right lower zone, not seen on the previous film, is suggestive of infiltration. There is no evidence of pleural effusion or pleural thickening. Heart and Mediastinum: The heart size and shape are normal. There is no mediastinal widening or masses. No hilar or mediastinal lymphadenopathy is present. Bony Thorax: The bony thorax appears intact without acute fractures or deformities. Old fourth and fifth rib fractures are noted. Soft Tissues: The soft tissues overlying the chest wall are unremarkable. IMPRESSION: 1. Faint opacification involving the right lower zone, not seen on the previous film, is suggestive of infiltration. Clinical correlation is advised. Electronically Signed by: Johann Vargas MD. (08/01/2025 21:10:06 EDT)
[2025-08-01] MEDS ORDERED: ZITHROMAX IV IV ONE (21:36)
[2025-08-01] MEDS: ZITHROMAX IV*** 500 MG in Sodium Chloride 0.9% 250 ML 250 ML IV STA (21:42)
[2025-08-01 22:22] VITALS: BP 131/73; PULSE 80; RESP 28
[2025-08-01] MEDS: ROCEPHIN 2 GM/100 ML NACL 2 GM/100 ML IVPB IV ONE (22:53)
--- NOTE | 2025-08-01 22:58 | XRAY ---
CLINICAL HISTORY: pain COMPARISON: Jul 12, 2025, 13:33:26 IN FLIGHT TECHNICIAN TECHNIQUE: Contiguous axial images were obtained from the level of the diaphragm to the lower pole of the kidneys without intravenous or oral contrast. Coronal and sagittal reconstructions were likewise performed and indicated to increase the sensitivity for detecting clinically relevant pathology. The CT scan was performed according to ALARA (as low as reasonably achievable) principles. FINDINGS: Mild bilateral pleural effusion with basal subsegmental collapse of both lower lobes is seen. Evaluation of the abdominal and pelvic visceral organs is limited without intravenous contrast. Hepatomegaly measuring about 20 cm. Splenomegaly measuring about 19 cm. A mildly dilated portal vein with a few collaterals is noted adjacent to the splenic hilum, suggesting the possibility of portal hypertension. The unenhanced pancreas and adrenal glands are grossly unremarkable. Status post-cholecystectomy. Mild ascites. Diffuse subcutaneous edema/anasarca. The kidneys are normal in size and attenuation without obvious calcification. There is no hydronephrosis or perinephric stranding. The visualized ureters are normal in caliber. No adenopathy or fluid collections are seen. No evidence of focal or diffuse bowel wall thickening or evidence of bowel obstruction is seen. The aorta is normal in caliber. No aggressive-appearing osseous lesions are identified. Lumbar spondylosis, L4 anterolisthesis, and chronic T12 wedge fracture (stable). IMPRESSION: 1. Hepatosplenomegaly. - stable. 2. Changes of portal hypertension. - stable. 3. Mild ascites. - increased 4. Diffuse subcutaneous edema/anasarca. - increased 5. Mild bilateral pleural effusion with basal subsegmental collapse of both lower lobes is seen. - new finding. Electronically Signed by: Quinton Duran MD. (08/01/2025 22:55:57 EDT)
[2025-08-01 23:54] VITALS: O2SAT 100
== END 2025-08-01 22:56 | disposition short-term general hospital (02) ==
LOC: ED 11:19
DX: D72.829 Elevated white blood cell count, unspecified (principal); D64.9 Anemia, unspecified; E87.6 Hypokalemia; D69.6 Thrombocytopenia, unspecified; R91.8 Other nonspecific abnormal finding of lung field; R60.0 Localized edema; R16.2 Hepatomegaly with splenomegaly, not elsewhere classified; K76.6 Portal hypertension; R18.8 Other ascites; J90 Pleural effusion, not elsewhere classified; R53.1 Weakness
CPT/HCPCS: 36415; 36430; 71045; 74176; 80053; 81001; 83605; 84484; 85025; 86850; 86900; 86901; 86922; 87040; 87637; 93041; 94760; 96361; 96365; 96366; 96368; 99291; P9016